=== PATIENT | female | born 1985 | race Two or more races ===

== ENCOUNTER 2018-02-20 08:00 | Outpatient (CLI) | payer MEDICAID ==
[~2018-02-20 08:00] MED LIST: LABE200T PO; LIDOcaine 1%/PF 5ML 10 MG/ML VIAL SQ ONE; NIFE20CA PO
== END 2018-02-20 10:22 | disposition home or self-care (01) ==
LOC: SSTAY O 08:00
PROVIDERS: ATTEND Radiology Vascular & Interventional Radiology
DX: L03.311 Cellulitis of abdominal wall (principal)

== ENCOUNTER 2023-01-27 17:35 | Emergency (ER) | payer MEDICAID ==
[~2023-01-27] VITALS: Ht 154.9 cm; Wt 97.7 kg
[~2023-01-27 17:35] MED LIST changes: -LABE200T PO; +LABE200T8 PO; -LIDOcaine 1%/PF 5ML 10 MG/ML VIAL SQ ONE
[2023-01-27] MEDS ORDERED: cloNIDine 0.1 mg tablet PO ONE (18:35)
[2023-01-27 19:34] VITALS: BP 200/90
== END 2023-01-27 19:36 ==
LOC: ER 17:36
DX: I10 Essential (primary) hypertension (principal); Z91.148 Patient's other noncompliance with medication regimen for other reason
CPT/HCPCS: 99283

== ENCOUNTER 2023-08-02 22:31 | Emergency (ER) | payer MEDICAID ==
[~2023-08-02] VITALS: Ht 154.9 cm; Wt 97.7 kg
[2023-08-02] MEDS ORDERED: clindamycin 600mg/D5W 50ml 50 ML IV ONE (22:55)
[2023-08-02] MEDS ORDERED: HYDROmorphone 1 mg/ml syringe IV ONE (22:55)
[2023-08-02] MEDS ORDERED: ondansetron/PF 4mg/2ml inj IV ONE (22:55)
[2023-08-02] MEDS ORDERED: LIDOcaine/epinephrine/tetracaine TOPICAL sol 3 ML syringe TOP ONE (23:05)
[2023-08-02] MEDS ORDERED: LIDOCAINE 1%/EPI 1:100,000 inj. 10 ML multi-dose vial IJ ONE (23:10)
[2023-08-02] MEDS ORDERED: SULF1TAB49 PO (23:35)
[2023-08-02] MEDS ORDERED: HYDR-3965 PO (23:35)
[2023-08-02] MEDS ORDERED: CEPH-585 PO (23:35)
[2023-08-03] MEDS ORDERED: normal saline 1000ML IV soln IVB ONE (00:35)
[2023-08-03] MEDS ORDERED: acetaminophen 325mg tablet PO STA (00:39)
[2023-08-03 02:02] VITALS: BP 163/94; PULSE 96; RESP 18; TEMP 99.2; O2SAT 95
== END 2023-08-03 02:05 | disposition home or self-care (01) ==
LOC: ER 22:32
DX: L02.416 Cutaneous abscess of left lower limb (principal); I10 Essential (primary) hypertension; F15.10 Other stimulant abuse, uncomplicated; Z79.899 Other long term (current) drug therapy
CPT/HCPCS: 10060; 96361; 96374; 96375; 99284; J1170; J2405; J3490; J7030

== ENCOUNTER 2024-06-17 18:09 | Emergency (ER) | payer MEDICAID ==
[~2024-06-17] VITALS: Ht 154.9 cm; Wt 115.3 kg
[~2024-06-17 18:09] MED LIST changes: +CEPH-585 PO; -NIFE20CA PO; +NIFE20CA8 PO
[2024-06-17] MEDS ORDERED: niCARDipine-NS 40mg/200ml IVPB 200 ML IV SCH (19:35)
[2024-06-17 19:42] LABS: BASOPHILS # (AUTO) 0.1 X10'3 (0-0.2); BASOPHILS % (AUTO) 0.7 % (0-1); EOSINOPHILS # (AUTO) 0.3 X10'3 (0-0.9); EOSINOPHILS % (AUTO) 3.3 % (0-6); HEMATOCRIT 43.3 % (35.0-45.0); HEMOGLOBIN 14.9 g/dl (12.0-16.0); LYMPHOCYTES # (AUTO) 2.5 X10'3 (1.1-4.8); LYMPHOCYTES % (AUTO) 29.7 % (21-51); MEAN CORPUSCULAR HGB CONC 34.3 g/dL (33.0-36.5); MEAN CORPUSCULAR VOLUME 81.7 FL (78-98); MEAN PLATELET VOLUME 7.4 FL (7.4-10.4); MONOCYTES # (AUTO) 0.4 X10'3 (0-0.9); MONOCYTES % (AUTO) 5.1 % (2-12); NEUTROPHILS # (AUTO) 5.2 X10'3 (1.8-7.7); NEUTROPHILS % (AUTO) 61.2 % (42-75); PLATELET COUNT 253 X10'3 (140-440); RED CELL DISTRIBUTION WIDTH 13.4 % (11.5-14.5); WHITE BLOOD COUNT 8.4 X10'3 (4.5-11.0)
[2024-06-17 19:46] LABS: ALBUMIN 3.7 G/DL (3.4-5.0); ANION GAP 9 (8-16); BLOOD UREA NITROGEN 10 MG/DL (7-18); BUN/CREATININE RATIO 12.2 (10.0-20.0); CALCIUM 8.3 MG/DL (8.5-10.1); CHLORIDE 99 MMOL/L (99-107); CREATININE 0.82 MG/DL (0.40-0.90); GLUCOSE 194 MG/DL (70-104); POTASSIUM 3.1 MMOL/L (3.5-5.1); SODIUM 137 MMOL/L (135-145); TOTAL CARBON DIOXIDE 28.9 MMOL/L (24-32); eCRCL 70 ML/MIN; eGFR > 90 ML/MIN
[2024-06-17 19:50] LABS: APTT 22 SECONDS (22-32); PROTHROMBIN TIME 10.7 SECONDS (9.0-12.0)
[2024-06-17] MEDS: niCARDipine-NS 40mg/200ml IVPB 200 ML IV SCH (20:04)
[2024-06-17 21:03] VITALS: BP 185/119; PULSE 110; RESP 26; TEMP 99; O2SAT 98
== END 2024-06-17 21:03 ==
LOC: ER 18:09
DX: I61.9 Nontraumatic intracerebral hemorrhage, unspecified (principal); I16.1 Hypertensive emergency; F15.90 Other stimulant use, unspecified, uncomplicated; F17.200 Nicotine dependence, unspecified, uncomplicated; I10 Essential (primary) hypertension; Z79.2 Long term (current) use of antibiotics; Z79.899 Other long term (current) drug therapy
CPT/HCPCS: 36415; 70450; 71045; 80048; 82948; 85025; 85610; 85730; 86885; 86900; 86901; 93005; 96365; 99291; 99292; J3490